=== PATIENT | male | born 1960 | race Two or more races ===

== ENCOUNTER 2017-04-06 08:20 | Emergency (ER) | payer MEDICAID, OTHER ==
[2017-04-06 08:29] VITALS: BP 131/83
--- NOTE | 2017-04-06 08:42 | EDM.PDOC ---
ED HPI GENERAL MEDICAL PROBLEM - General Chief Complaint: General Stated Complaint: PAIN IN BACK Time Seen by Provider: 04/06/17 08:32 Source of Information: Reports: Patient History Limitations: Reports: No Limitations - History of Present Illness INITIAL COMMENTS - FREE TEXT/NARRATIVE: 56 YO HM presents to ER complaining of 3 day history of low back pain. 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 Pt reports pain radiates down right buttock and leg to knee only. Pt denies any bowel or bladder dysfunction. Pt denies any saddle parathesias. Pt denies any weakness to leg. Duration: Day(s): (3) Location: Reports: Back Quality: Reports: Ache Severity: Mild Improves with: Reports: Rest Worsens with: Reports: Movement Associated Symptoms: Reports: No Other Symptoms Treatments ADVISORY SERVICES ASSOCIATE: Reports: Other Medication(s) Right Leg Pain Score (Numeric/FACES): 8 - Related Data Allergies Allergy/AdvReac Type Severity Reaction Status Date / Time No Known Drug Allergies Allergy Cannot Verified 04/06/17 08:29 Remember Home Meds: Home Meds Cyclobenzaprine [Flexeril] 10 mg PO TID PRN #10 tablet 04/06/17 [Rx] Dabigatran Etexilate Mesylate [Pradaxa] 150 mg PO BID 04/06/17 [History] Hydrocodone/Acetaminophen [Hydrocodon-Acetaminophn 10-325] 1 tab PO Q4H PRN #10 tablet 04/06/17 [Rx] predniSONE 20 mg PO WITHBREAKFAST #15 tablet 04/06/17 [Rx] ED ROS GENERAL - Review of Systems Review Of Systems: See Below Constitutional: Reports: No Symptoms HEENT: Reports: No Symptoms Respiratory: Reports: No Symptoms Cardiovascular: Reports: No Symptoms Endocrine: Reports: No Symptoms GI/Abdominal: Reports: No Symptoms Musculoskeletal: Reports: Back Pain, Leg Pain Skin: Reports: No Symptoms Neurological: Reports: No Symptoms Psychiatric: Reports: No Symptoms Hematologic/Lymphatic: Reports: No Symptoms Immunologic: Reports: No Symptoms ED EXAM, GENERAL - Physical Exam Exam: See Below Exam Limited By: No Limitations General Appearance: Alert, WD/WN, No Apparent Distress Head: Atraumatic, Normocephalic Neck: Normal Inspection, Supple, Non-Tender, Full Range of Motion Respiratory/Chest: No Respiratory Distress, Lungs Clear, Normal Breath Sounds, No Accessory Muscle Use, Chest Non-Tender Cardiovascular: Normal Peripheral Pulses, Regular Rate, Rhythm, No Edema, No Gallop, No JVD, No Murmur, No Rub GI/Abdominal: Normal Bowel Sounds, Soft, Non-Tender, No Organomegaly, No Distention, No Abnormal Bruit, No Mass Back Exam: Muscle Spasm, Paraspinal Tenderness Extremities: Normal Inspection, Normal Range of Motion, Non-Tender, Normal Capillary Refill, No Pedal Edema Neurological: Alert, Oriented, CN II-XII Intact, Normal Cognition, Normal Gait, Normal Reflexes, No Motor/Sensory Deficits Psychiatric: Normal Affect, Normal Mood Skin Exam: Warm, Dry, Intact, Normal Color, No Rash Lymphatic: No Adenopathy Course - Vital Signs Last Recorded V/S: Last Vital Signs Temp 36.8 C 04/06/17 08:22 Pulse 81 04/06/17 08:22 Resp 18 04/06/17 08:22 BP 131/83 04/06/17 08:22 Pulse Ox 99 04/06/17 08:22 - Orders/Labs/Meds Orders: Active Orders 24 hr Category Date Time Status Acetaminophen/HYDROcodone [[place] 325-10 MG] Med 04/06/17 08:45 Ordered 1 tab PO Q4H PRN Cyclobenzaprine [Flexeril] Med 04/06/17 08:45 Ordered 10 mg PO TID PRN Medication Orders Hydrocodone Bitart/Acetaminophen ([place] 325-10 Mg) 1 tab PO Q4H PRN PRN Reason: Pain Stop: 04/07/17 00:46 Cyclobenzaprine HCl (Flexeril) 10 mg PO TID PRN PRN Reason: Pain Stop: 04/06/17 14:01 Meds: Medications Generic Name Dose Route Start Last Admin Trade Name Freq PRN Reason Stop Dose Admin Hydrocodone Bitart/Acetaminophen 1 tab 04/06/17 08:45 [place] 325-10 Mg PO 04/07/17 00:46 Q4H PRN Pain Cyclobenzaprine HCl 10 mg 04/06/17 08:45 Flexeril PO 04/06/17 14:01 TID PRN Pain Discontinued Medications Generic Name Dose Route Start Last Admin Trade Name Freq PRN Reason Stop Dose Admin Ketorolac Tromethamine 60 mg 04/06/17 08:45 Toradol IM 04/06/17 08:46 ONETIME ONE Methylprednisolone Sodium Succinate 125 mg 04/06/17 08:45 Solu-Medrol IM 04/06/17 08:46 ONETIME ONE Departure - Departure Time of Disposition: 08:56 Disposition: Home, Self-Care 01 Condition: Fair Clinical Impression: Sciatica Qualifiers: Laterality: right Qualified Code(s): M54.31 - Sciatica, right side - Discharge Information Prescriptions: Cyclobenzaprine [Flexeril] 10 mg PO TID PRN #10 tablet PRN Reason: Pain Hydrocodone/Acetaminophen [Hydrocodon-Acetaminophn 10-325] 1 tab PO Q4H PRN #10 tablet PRN Reason: Pain predniSONE 20 mg PO WITHBREAKFAST #15 tablet Instructions: Sciatica Forms: ED Department Discharge - My Orders Last 24 Hours: My Active Orders 04/06/17 08:45 Acetaminophen/HYDROcodone [[place] 325-10 MG] 1 tab PO Q4H PRN Cyclobenzaprine [Flexeril] 10 mg PO TID PRN - Assessment/Plan Last 24 Hours: My Active Orders 04/06/17 08:45 Acetaminophen/HYDROcodone [[place] 325-10 MG] 1 tab PO Q4H PRN Cyclobenzaprine [Flexeril] 10 mg PO TID PRN Assessment:: 1. sciatica 2. back pain Plan: 1. discharge home 2. flexiril 10mg PO TID 3. prednisone 60mg PO QD x 5 days 4. hydrocodone 10/325 #10 Q4 PRN 5. follow up with [facility]
[2017-04-06] MEDS ORDERED: Ketorolac 60 MG/2 ML SDV IM ONE (08:45)
[2017-04-06] MEDS ORDERED: Acetaminophen/HYDROcodone 325-10 MG Tab PO PRN (08:45)
[2017-04-06] MEDS ORDERED: methylPREDNISolone Sodium Succinate 125 MG/2 ML SDV IM ONE (08:45)
[2017-04-06] MEDS ORDERED: Cyclobenzaprine 10 MG Tab PO PRN (08:45)
[2017-04-06] MEDS ORDERED: Cyclobenzaprine 10 MG Tab ONE (08:56)
[2017-04-06] MEDS ORDERED: Acetaminophen/HYDROcodone 325-10 MG Tab ONE (08:58)
== END 2017-04-06 09:20 | disposition home or self-care (01) ==
LOC: KA.ED 08:20
DX: M54.41 Lumbago with sciatica, right side (principal)
CPT/HCPCS: 96372; 99283; A9270; J1885; J2930